=== PATIENT | female | born 1980 | race African-American/Black ===

== ENCOUNTER 2019-12-04 21:33 | Emergency (ER) | payer OTHER ==
--- NOTE | 2019-12-04 21:44 | ED ---
General Adult HPI - General Stated complaint: Mental Health Time Seen by Provider: 12/04/19 21:38 - History of Present Illness Initial comments: Dictation was produced using [employer] dictation software. please excuse any grammatical, word or spelling errors. This patient was cared for during a federal and state declared state of emergency secondary to Covid 19 Chief Complaint: 39-year-old female with auditory hallucinations. History of Present Illness: This 39-year-old female presents today with auditory hallucinations times one day. Patient states she has history of schizophrenia. She every 3 months gets a intramuscular injection to control her schizophrenia symptoms. She states she has not had it in a while. EMS was called by [facility] staff. She is brought in here by EMS. Patient denies any suicidal or homicidal ideations. She denies any visual hallucinations. She states she hears voices that are mumbling however they do not tell her anything specifically. Patient has no medical complaints at this time. The ROS documented in this emergency department record has been reviewed and confirmed by me. Those systems with pertinent positive or negative responses have been documented in the HPI. All other systems are other negative and/or noncontributory. PHYSICAL EXAM: General Impression: Alert and oriented x3, not in acute distress HEENT: Normocephalic atraumatic, extra-ocular movements intact, pupils equal and reactive to light bilaterally, mucous membranes moist. Cardiovascular: Heart regular rate and rhythm Chest: Able to complete full sentences, no retractions, no tachypnea Abdomen: abdomen soft, non-tender, non-distended, no organomegaly Musculoskeletal: Pulses present and equal in all extremities, no peripheral edema Motor: no focal deficits noted Neurological: CN II-XII grossly intact, no focal motor or sensory deficits noted Skin: Intact with no visualized rashes Psych: Normal affect and mood ED course: 39-year-old female presents with auditory hallucinations. She has a history of schizophrenia. Vital signs upon arrival are within acceptable limits. Patient medically cleared for EPS evaluation.Patient evaluated by EPS. Patient given her psychiatric injection. She is clear for discharge. - Related Data Allergies Allergy/AdvReac Type Severity Reaction Status Date / Time No Known Allergies Allergy Verified 12/04/19 22:28 Review of Systems ROS Statement: Those systems with pertinent positive or pertinent negative responses have been documented in the HPI. ROS Other: All systems not noted in ROS Statement are negative. Course Vital Signs 12/04/19 22:33 Temperature 97.8 F Pulse Rate 77 Respiratory 16 Rate Blood Pressure 101/54 O2 Sat by Pulse 99 Oximetry Disposition Clinical Impression: Evaluation by psychiatric service required Disposition: HOME SELF-CARE Condition: Good Instructions (If sedation given, give patient instructions): Schizophrenia (ED) Is patient prescribed a controlled substance at d/c from ED?: No Referrals: Nonstaff,Physician [Primary Care Provider] - 1-2 days Time of Disposition: 22:36
[2019-12-04 22:34] VITALS: BP 101/54; PULSE 77; RESP 16; TEMP 97.8
[2019-12-04] MEDS ORDERED: PALIPERIDONE IM 234 MG/1.5 ML SYG IM ONE (23:00)
== END 2019-12-04 23:07 | disposition home or self-care (01) ==
LOC: EC 21:33
DX: F20.9 Schizophrenia, unspecified (principal)
CPT/HCPCS: 82075; 81025; 96372; 99285; J2426

== ENCOUNTER 2019-12-06 11:36 | Inpatient (IN) | payer MEDICAID, OTHER ==
--- NOTE | 2019-12-06 11:59 | ED ---
General Adult HPI - General Source: patient, RN notes reviewed Mode of arrival: ambulatory Limitations: no limitations <Abdon Wheeler - Last Filed: 12/06/19 11:57> <Jaja Sun - Last Filed: 12/10/19 22:45> - General Chief complaint: Psychiatric Symptoms Stated complaint: Mental Health Time Seen by Provider: 12/06/19 11:44 - History of Present Illness Initial comments: Patient is a pleasant 39-year-old female presenting to the emergency department with concerns regarding her schizophrenia. Patient states she has been taking her medications however questions if they're working well. Patient feels as if some amounts is a control of her body. Patient hears mumbling. Patient also see shadows. Patient amiss to feeling somewhat anxious and paranoid. No suicidal or homicidal thoughts. No alcohol or street drug use. No new physical complaints. (Abdon Wheeler) - Related Data Home Medications Medication Instructions Recorded Confirmed Levothyroxine Sodium [Synthroid] 75 mcg PO DAILY 12/06/19 12/06/19 Omeprazole 20 mg PO DAILY 12/06/19 12/06/19 Wellbutrin 150mg 1 tab PO DAILY 12/06/19 12/06/19 Zoloft (Unknown Dosage) 1 tab PO DAILY 12/06/19 12/06/19 diphenhydrAMINE [Benadryl] 100 mg PO BID 12/06/19 12/06/19 Allergies Allergy/AdvReac Type Severity Reaction Status Date / Time risperidone [From Risperdal] Allergy Unknown Verified 12/06/19 11:43 Review of Systems ROS Other: All systems not noted in ROS Statement are negative. Constitutional: Denies: fever Eyes: Denies: eye pain ENT: Denies: ear pain Respiratory: Denies: cough Cardiovascular: Denies: chest pain Endocrine: Denies: fatigue Gastrointestinal: Denies: abdominal pain Genitourinary: Denies: dysuria Musculoskeletal: Denies: back pain Skin: Denies: rash Neurological: Denies: weakness Psychiatric: Reports: anxiety, auditory hallucinations, visual hallucinations <Abdon Wheeler - Last Filed: 12/06/19 11:57> ROS Other: All systems not noted in ROS Statement are negative. <Jaja Sun - Last Filed: 12/10/19 22:45> ROS Statement: Those systems with pertinent positive or pertinent negative responses have been documented in the HPI. Past Medical History Past Medical History: No Reported History History of Any Multi-Drug Resistant Organisms: None Reported Past Surgical History: No Surgical Hx Reported Past Psychological History: Anxiety, Depression, Schizophrenia Smoking Status: Unknown if ever smoked Past Alcohol Use History: None Reported Past Drug Use History: Cocaine <Abdon Wheeler - Last Filed: 12/06/19 11:57> General Exam Limitations: no limitations General appearance: alert, in no apparent distress Head exam: Present: normocephalic Eye exam: Present: normal appearance Neck exam: Present: normal inspection Respiratory exam: Present: normal lung sounds bilaterally Cardiovascular Exam: Present: regular rate, normal rhythm GI/Abdominal exam: Present: soft. Absent: tenderness Extremities exam: Present: normal inspection Neurological exam: Present: alert Psychiatric exam: Present: anxious Skin exam: Present: normal color <Abdon Wheeler - Last Filed: 12/06/19 11:57> Course Vital Signs 12/06/19 12/06/19 11:38 12:45 Temperature 98.3 F 97.8 F Pulse Rate 76 82 Respiratory 18 18 Rate Blood Pressure 94/63 126/64 O2 Sat by Pulse 100 97 Oximetry Medical Decision Making - Lab Data Result diagrams: 12/06/19 17:20 12/06/19 18:18 <Jaja Sun - Last Filed: 12/10/19 22:45> - Lab Data Lab Results 12/06/19 Range/Units 12:05 Urine Opiates Screen Not Detected (NotDetected) Ur Oxycodone Screen Not Detected (NotDetected) Urine Methadone Screen Not Detected (NotDetected) Ur Propoxyphene Screen Not Detected (NotDetected) Ur Barbiturates Screen Not Detected (NotDetected) U Tricyclic Antidepress Not Detected (NotDetected) Ur Phencyclidine Scrn Not Detected (NotDetected) Ur Amphetamines Screen Not Detected (NotDetected) U Methamphetamines Scrn Not Detected (NotDetected) U Benzodiazepines Scrn Not Detected (NotDetected) Urine Cocaine Screen Not Detected (NotDetected) U Marijuana (THC) Screen Not Detected (NotDetected) Disposition <Abdon Wheeler - Last Filed: 12/06/19 11:57> Is patient prescribed a controlled substance at d/c from ED?: No Decision to Admit Reason: Admit from EC Decision Date: 12/06/19 Decision Time: 16:26 <Jaja Sun - Last Filed: 12/10/19 22:45> Clinical Impression: Acute psychosis Disposition: ADMITTED IP TO THIS HOSP Condition: Stable
[2019-12-06 13:08] LABS: Amphetamine Screen,Urine Not Detected (NotDetected); Barbiturate Screen,Urine Not Detected (NotDetected); Benzodiazepines Screen,Urine Not Detected (NotDetected); Cocaine Screen,Urine Not Detected (NotDetected); Methadone Screen, Urine Not Detected (NotDetected); Opiate Screen,Urine Not Detected (NotDetected); Oxycodone Screen, Urine Not Detected (NotDetected); Phencyclidine Screen,Urine Not Detected (NotDetected); Tricyclic Antidepressant,Urine Not Detected (NotDetected); Urn Cannabinoid Scrn Not Detected (NotDetected)
[2019-12-06] MEDS ORDERED: ZIPRASIDONE 20 MG VIAL IM PRN (16:24)
[2019-12-06] MEDS ORDERED: MAGNESIUM HYDROXIDE 2,400 MG/10 ML CUP PO PRN (16:24)
[2019-12-06] MEDS ORDERED: ACETAMINOPHEN TAB 325 MG TAB PO PRN (16:24)
[2019-12-06] MEDS ORDERED: LORazepam 2 MG/ML INJ IM PRN (16:28)
[2019-12-06] MEDS ORDERED: KETOROLAC 15 MG/ML 1 ML VIAL IM STA (17:17)
[2019-12-06] MEDS ORDERED: ALBUTEROL INHALER 60 PUFF/8 GM INHALER (MHU) INHALATION PRN (17:43)
--- NOTE | 2019-12-06 17:50 | P.HPMEDMHU ---
History of Present Illness H&P Date: 12/06/19 Chief Complaint: schizophrenia Patient is a 39 yo AAF with a hx of asthma, hypothyroidism, and prior pancreatitis who has been admitted to the mental health unit for schizophrenia. Patient seen and examined. She reports that she was at [facility] in [place] 2 months ago for pancreatitis and has had abdominal pain since that time. + vomiting today this morning. + abdominal pain that is epigastric this has been happening X 2 months. States pain never really complete resolved after her admission 2 months ago States that Pain medications were helping in the hospital but has not been taking anything at home. + gaining weight, eating and drinking well, but states that stomach has been hurting more after eating. last Bowel movement yesterday and was regular. No problems urinating. Reports that her abdominal pain is bad, but not bad enough that she needs a special diet. She reports that she takes Benadryl 100mg twice daily for anxiety/allergies and multiple other reasons. Was at [facility] and completed the program started at [facility] on Nov 30 Review of Systems Pertinent positives and negatives as discussed in HPI, a complete review of systems was performed and all other systems are negative. Constitutional: Denies chills, Denies fever Eyes: denies blurred vision, denies pain Ears, nose, mouth and throat: Denies headache, Denies sore throat Cardiovascular: Denies chest pain, Denies shortness of breath Respiratory: Denies cough Gastrointestinal: Denies abdominal pain, Denies diarrhea, Denies nausea, Denies vomiting Genitourinary: Denies dysuria, Denies hematuria Musculoskeletal: Denies myalgias Integumentary: Denies pruritus, Denies rash Neurological: Denies numbness, Denies weakness Psychiatric: Denies anxiety, Denies depression Endocrine: Denies fatigue, Denies weight change Past Medical History Additional Past Medical History / Comment(s): pancreatitis, acid reflux, hypothyroidism, asthma History of Any Multi-Drug Resistant Organisms: None Reported Additional Past Surgical History / Comment(s): , gallbladder Past Psychological History: Anxiety, Depression, Schizophrenia Smoking Status: Current every day smoker Past Alcohol Use History: None Reported Past Drug Use History: Cocaine Additional History: 1/3 PPD - Past Family History Father Family Medical History: No Reported History Mother Family Medical History: No Reported History Medications and Allergies Home Medications Medication Instructions Recorded Confirmed Type Levothyroxine Sodium [Synthroid] 75 mcg PO DAILY 12/06/19 12/06/19 History Omeprazole 20 mg PO DAILY 12/06/19 12/06/19 History Wellbutrin 150mg 1 tab PO DAILY 12/06/19 12/06/19 History Zoloft (Unknown Dosage) 1 tab PO DAILY 12/06/19 12/06/19 History diphenhydrAMINE [Benadryl] 100 mg PO BID 12/06/19 12/06/19 History Allergies Allergy/AdvReac Type Severity Reaction Status Date / Time risperidone [From Risperdal] Allergy Unknown Verified 12/06/19 11:43 Physical Exam Osteopathic Statement: *. No significant issues noted on an osteopathic structural exam other than those noted in the History and Physical/Consult. Vitals: Vital Signs Temp Pulse Resp BP Pulse Ox 12/06/19 12:45 97.8 F 82 18 126/64 97 12/06/19 11:38 98.3 F 76 18 94/63 100 Intake and Output 12/06/19 12/06/19 12/06/19 06:59 14:59 22:59 Other: Weight 55.52 kg General: non toxic, no distress, appears older than stated age Derm: multiple scars bilateral arms, warm, dry Head: atraumatic, normocephalic, symmetric Eyes: EOMI, no lid lag, anicteric sclera, pupils equal round reactive to light ENT: Nose and ears atraumatic, no thrush, no pharyngeal erythema Neck: No thyromegaly, no cervical lymphadenopathy, trachea midline, supple Mouth: no lip lesion, mucus membranes moist Cardiovascular: S1S2 reg, no murmur, positive posterior tibial pulse bilateral, no edema, capillary refill less than 2 seconds Lungs: Wheeze bilateral, no accessory muscle use Abdominal: soft, + tender to palpation diffusely, no guarding, no appreciable o rganomegaly, normal bowel sounds Ext: no gross muscle atrophy, muscle strength muscle strength 5 out of 5 in all 4 extremities, no contractures Neuro: CN II-XI grossly intact, light touch intact all 4 extremities, finger to nose within normal limits, Psych: Alert, oriented, appears to be med seeking Cranial Nerve Examination - Cranial Nerves Cranial Nerve I- Olfactory: Intact Cranial Nerve II- Optic: Intact Cranial Nerve III- Oculomotor: Intact Cranial Nerve IV- Trochlear: Intact Cranial Nerve V- Trigeminal: Intact Cranial Nerve - Abducens: Intact Cranial Nerve VII- Facial: Intact Cranial Nerve VIII- Auditory: Intact Cranial Nerve IX- Glossopharyngeal: Intact Cranial Nerve X- Vagus: Intact Cranial Nerve XI- Accessory: Intact Cranial Nerve XII- Hypoglossal: Intact Thrombosis Risk Factor Assmnt - DVT/VTE Prophylaxis DVT/VTE Prophylaxis: Low risk, early ambulation encouraged Assessment and Plan Assessment: Abdominal pain - CMP, Lipase, CBC - toradol X 1 then - then motrin, tylenol GERD - PPI Hypothyroidism - Synthroid - check TSH Asthma without exacerbation - prn albuterol Schizophrenia - your psych management Thank you for allowing us to participate in the care of this pleasant patient. Do not hesitate to contact us with questions. Someone can be reached from the [facility] hospitalist group all hours of the day at [phone] or via [employer].
[2019-12-06] MEDS: PANTOPRAZOLE 40 MG TABLET PO SCH (18:00)
[2019-12-06] MEDS: diphenhydrAMINE 50 MG CAP PO PRN (18:00)
[2019-12-06] MEDS: LORazepam 1 MG TAB PO PRN (18:21)
[2019-12-06 19:16] LABS: HCT 39.1 % (34.0-46.0); MCH 31.7 pg (25.0-35.0); MCHC 33.3 g/dL (31.0-37.0); Mean Platelet Volume 9.9; Platelet Count 134 k/uL (150-450); RBC 4.12 m/uL (3.80-5.40); RDW 12.8 % (11.5-15.5); WBC 3.4 k/uL (3.8-10.6)
[2019-12-06 19:16] LABS: ALT 15 U/L (4-34); AST 36 U/L (14-36); African American GFR (CKD) >90 (>60 ml/min/1.73 sqM); Albumin 4.1 g/dL (3.5-5.0); Alkaline Phosphatase 102 U/L (38-126); Anion Gap 8 mmol/L; Blood Urea Nitrogen 18 mg/dL (7-17); Carbon Dioxide 25 mmol/L (22-30); Chloride 105 mmol/L (98-107); Glucose 109 mg/dL (74-99); Non-African American GFR(CKD) >90 (>60 ml/min/1.73 sqM); Sodium 138 mmol/L (137-145); Total Bilirubin 0.5 mg/dL (0.2-1.3); Total Protein 7.1 g/dL (6.3-8.2)
[2019-12-06 19:17] LABS: Potassium 4.3 mmol/L (3.5-5.1)
[2019-12-06 19:31] LABS: Cholesterol 167 mg/dL (<200); HDL Cholesterol 61 mg/dL (40-60); LDL Cholesterol,Calculated 78 mg/dL (0-99); Triglycerides 140 mg/dL (<150)
[2019-12-06] MEDS: IBUPROFEN 600 MG TAB PO PRN (19:47)
[2019-12-06] MEDS: MAG HYDROX/AL HYDROX/SIMETH 30 ML CUP PO PRN (22:11)
[2019-12-07] MEDS: MAG HYDROX/AL HYDROX/SIMETH 30 ML CUP PO PRN ×3 (03:59→20:12)
[2019-12-07] MEDS: ONDANSETRON 4 MG TAB PO PRN (06:12)
[2019-12-07] MEDS ORDERED: LEVOTHYROXINE 75 MCG TAB PO SCH (06:30)
[2019-12-07] MEDS: LORazepam 1 MG TAB PO PRN (08:20)
[2019-12-07] MEDS: PANTOPRAZOLE 40 MG TABLET PO SCH (08:20)
[2019-12-07] MEDS: diphenhydrAMINE 50 MG CAP PO PRN ×2 (08:20→20:12)
[2019-12-07] MEDS: NICOTINE 14MG/24HR PATCH TRANSDERM SCH (08:20)
[2019-12-07] MEDS ORDERED: [UNRECOGNIZED DRUG - OTHER] PO SCH (09:00)
[2019-12-07] MEDS ORDERED: NICOTINE 21MG/24HR PATCH TRANSDERM SCH (09:00)
--- NOTE | 2019-12-07 11:15 | P.PN ---
Subjective Progress Note Date: 12/07/19 Principal diagnosis: abdominal pain Patient is a 39 yo AAF with hx of prior pancreatitis with complaints of abdominal pain. Vomited 3 times last night. Patient seen and examined. She states that she had increased in abdominal pain after eating breakfast. Still having some nausea, but no vomiting. States that she is hungry and wants to eat. We discussed that her lipase was normal and but that her pancreas could be slightly flared. She is in agreement with clear liquids of lunch and advance as tolerated to full liquid. General: non toxic , no distress, appears at stated age Derm: warm, dry Head: atraumatic, normocephalic, symmetric Eyes: EOMI, no lid lag, anicteric sclera Mouth: no lip lesion, mucus membranes moist Cardiovascular: S1S2 reg, no murmur, positive posterior tibial pulse bilateral, Lungs: Decreased bs bilateral, no rhonchi, no rales , no accessory muscle use Abdominal: soft, +tender to palpation epigastric, no guarding, no appreciable organomegaly Ext: no gross muscle atrophy, no edema, no contractures Neuro: CN II-XI grossly intact, no focal neuro deficits Psych: Alert, oriented, flat affect Abdominal pain - CMP, Lipase normal - CBC normal - clear liquid diet and advance as tolerated to full liquids this evening - may be that her lipase is not elevating due to prior pancreatitis episodes, if still in pain or vomiting then next step will be CT abdomen and pelvis in AM Objective - Vital Signs Vital signs: Vital Signs Temp 98.2 F 12/07/19 01:27 Pulse 89 12/07/19 08:24 Resp 16 12/07/19 08:24 BP 126/58 12/07/19 08:24 Pulse Ox 97 12/06/19 12:45 Intake & Output 12/06/19 12/07/19 12/07/19 18:59 06:59 18:59 Weight 54.431 kg - Labs CBC & Chem 7: 12/06/19 17:20 12/06/19 18:18 Labs: Abnormal Lab Results - Last 24 Hours (Table) 12/06/19 12/06/19 12/07/19 Range/Units 17:20 18:18 07:06 WBC 3.4 L (3.8-10.6) k/uL Plt Count 134 L (150-450) k/uL BUN 18 H (7-17) mg/dL Glucose 109 H (74-99) mg/dL HDL Cholesterol 61 H (40-60) mg/dL TSH 0.297 L (0.465-4.680) mIU/L Free T4 0.73 L (0.78-2.19) ng/dL
--- NOTE | 2019-12-07 11:37 | HP ---
HISTORY AND PHYSICAL DATE OF ADMISSION: 12/06/2019 DATE OF EVALUATION: 12/07/2019 IDENTIFYING DATA: The patient is a 39-year-old single female, receiving social security income. She is her own guardian. She presented to the emergency department with paranoia, hallucination, and depression. CHIEF COMPLAINT: "I am hearing voices, but it is just mumbling. Also I do see a lot of shadows around me. There is something touching my body." HISTORY OF PRESENT ILLNESS: The patient stated that she has history of schizophrenia since age 19 with multiple psychiatric hospitalizations at [facility] and she was on Invega injection every 3 months. However, for the last couple of weeks, she has been hearing voices and she stated that she did miss her appointment for the injection and she did show up in our emergency room on December 03 and she did receive an injection. However, I did look at the ER note from December 03 and it was not clear how much she did receive. The patient stated that she is currently at [facility] since November 30 after 2 weeks inpatient at [place] as she was addicted to crack cocaine since her early 20s. She was starting to see dark shadows and hearing voices, getting very paranoid and suspicious. 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 She reported that she has been having abdominal pain and she has been vomiting at least 2 or 3 times over the last couple of days. She denied any command auditory hallucination and she denied any current suicidal or homicidal ideation, but she did rate her depression and anxiety both 10 out of 10, 10 being the worst. PAST PSYCHIATRIC HISTORY: Patient stated that she has at least between 10-15 inpatient psych hospitalizations. The first psych hospitalization was at age 19 and the last one was a couple of months ago. Most of these hospitalizations are in [place]. She stated that she was diagnosed with schizophrenia and she did try different psychotropic medications, but she could not recall the name of all medications. The patient has been at [facility] or [facility] for outpatient. Her current psychotropic medication was Invega injection every 3 months. However, she stated that she did not follow through and currently she is on Zoloft 50 mg and Wellbutrin 150, but she does not feel that these medications are helping her. The patient denied any history of suicide attempt in the past. The patient has history of self-mutilation behavior in her late 20s. PAST MEDICAL HISTORY: She has history of asthma, hypothyroidism, history of pancreatitis. Her last admission for pancreatitis was 2 months ago at [facility] in [place] and since then, she stated that she has been having epigastric abdominal pain with recurrent vomiting. Also, there is history of acid reflux. PAST SURGICAL HISTORY: Gallbladder and . ALLERGIES: Risperdal. VITAL SIGNS: Today, temperature is 98.3, pulse 76, respirations 18, blood pressure 126/64. CHEMICAL SUBSTANCE ABUSE HISTORY: Cocaine. She started using cocaine in her early teen, however, it was not so often and it has been getting worse since she turned 31. She stated that she was in rehab for cocaine at least twice prior to the last admission to [place]. She just finished [facility] 2 weeks inpatient and she was transferred to [facility] on November 30. There is history of alcohol use. She stated that she used to drink a lot, but she denied any alcohol since she has been in [place]. FAMILY PSYCHIATRIC AND SUBSTANCE ABUSE HISTORY: The patient denied any history of substance abuse or mental illness in the family. However, she stated that her biological mother used to drink a lot and did drugs and that is why patient was adopted at age 5. SOCIAL HISTORY: The patient was born and raised in [place]. At age 5, she was adopted with her 2 older sisters, as her mother was addicted to alcohol and illicit drug The patient was never , but she has 3 children but they were placed in foster care at due to her cocaine use. Patient stated that she did not know her biological father, but she met her biological mother when she was grown up and her biological mother 3 years ago from heart attack. The patient is receiving social security income and she was living on her own in [place]. 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 However, she stated that her reading and math level are 4th grade education. Her main support is her oldest sister. The patient denied any legal problems. MENTAL STATUS EXAMINATION: The patient is an female who appears her stated age. Marginal hygiene and grooming. She was able to sit without any agitation. She was very anxious. Her speech is non-spontaneous but coherent. She stated that she has been having auditory and visual hallucinations, also tactile hallucinations. She stated that she does feel something under her skin. She did report ideas of reference. She reports that her mood is depressed and anxious. Her affect is constricted. She denied having any homicidal ideation, intent, or plan. She denied any suicidal ideation, intent, or plan. Her memory and concentration are grossly intact. Her insight and judgment are limited. INTELLECTUAL: Below-average. STRENGTHS AND WEAKNESSES: The patient has income and she is resilient. Weakness is her cocaine use and her limited intellectual function. IMPRESSION: 1. Schizoaffective disorder, depressed. 2. Cocaine use disorder. 3. Nicotine dependence. PLAN: The patient is admitted under voluntary status to the mental health unit for stabilization of the symptoms and safety. I will start the patient on Lexapro 10 mg for mood and anxiety with a plan to titrated up as needed. I will discontinue the Ativan as it seems to me that it will be cross addiction and the patient had long history of alcohol use. She will be given hydroxyzine or Vistaril p.r.n. for anxiety. Will contact [facility] to verify the Invega injection and how much she was taking and when is the last time she received an injection. However, I will start her on Invega oral 3 mg at bedtime and I will titrate it to eliminate her paranoia and hallucinations. Internal Medicine consult to perform medical evaluation and physical. The patient will be placed on nicotine patches. POST DISCHARGE PLAN: Patient will return back to [facility] for rehab. scale assembly set up worker onboard for discharge planning. Encourage patient to participate in group and activities. JIMMY / RADHAN: [id number] / KASSIDY
[2019-12-07] MEDS: hydrOXYzine pamoate 25 MG CAP PO PRN ×2 (13:57→20:12)
[2019-12-07] MEDS ORDERED: PALIPERIDONE 3 MG TAB.ER.24 PO SCH (21:00)
[2019-12-08] MEDS: LEVOTHYROXINE 50 MCG TAB PO SCH (07:09)
[2019-12-08] MEDS: hydrOXYzine pamoate 25 MG CAP PO PRN ×2 (08:28→16:06)
[2019-12-08] MEDS: diphenhydrAMINE 50 MG CAP PO PRN ×3 (08:28→20:28)
[2019-12-08] MEDS: NICOTINE 14MG/24HR PATCH TRANSDERM SCH (08:28)
[2019-12-08] MEDS: ESCITALOPRAM 10 MG TAB PO SCH (08:28)
[2019-12-08] MEDS: PANTOPRAZOLE 40 MG TABLET PO SCH (08:28)
--- NOTE | 2019-12-08 12:21 | P.PN ---
Progress Note - Text Progress Note Date: 12/08/19 I reviewed medical records ,did interview patient and case was discussed in treatment team Physical c/o:abdominal pain,was seen by medical doctor :according to note(( abdominal pain Patient is a 39 yo AAF with hx of prior pancreatitis with complaints of abdominal pain. Vomited 3 times last night. Patient seen and examined. She states that she had increased in abdominal pain after eating breakfast. Still having some nausea, but no vomiting. States that she is hungry and wants to eat. We discussed that her lipase was normal and but that her pancreas could be slightly flared. She is in agreement with clear liquids of lunch and advance as tolerated to full liquid. General: non toxic , no distress, appears at stated age Derm: warm, dry Head: atraumatic, normocephalic, symmetric Eyes: EOMI, no lid lag, anicteric sclera Mouth: no lip lesion, mucus membranes moist Cardiovascular: S1S2 reg, no murmur, positive posterior tibial pulse bilateral, Lungs: Decreased bs bilateral, no rhonchi, no rales , no accessory muscle use Abdominal: soft, +tender to palpation epigastric, no guarding, no appreciable organomegaly Ext: no gross muscle atrophy, no edema, no contractures Neuro: CN II-XI grossly intact, no focal neuro deficits Psych: Alert, oriented, flat affect Abdominal pain - CMP, Lipase normal - CBC normal - clear liquid diet and advance as tolerated to full liquids this evening - may be that her lipase is not elevating due to prior pancreatitis episodes, if still in pain or vomiting then next step will be CT abdomen and pelvis in AM)) Interval history: Patient was seating on her bed in the dark ,no interaction with other patients ,still endorsing auditory and tactile hallucination ,denies any command voice ,reports not able to sleep at night and asking me "Can you put me on regular diet I am hungry" Mental status exam: Patient was wearing own cloth ,fair grooming and hygiene, reports auditory hallucination ,suspicious ,paranoia,denies any suicidal or homicidal ideation ,very concrete in her thinking insight and judgment are limited ASSESSMENT: Schizoaffective ,depressed Cocaine use disorder PLAN: Patient continues to meet criteria for inpatient psychiatric admission for symptom stabilization and safety. Continue Lexapro 10 mg increase Invega 6 mg ,SW to have information from [place] regarding dose of Invega injection,encourage group participation
[2019-12-08] MEDS: MAG HYDROX/AL HYDROX/SIMETH 30 ML CUP PO PRN (16:26)
[2019-12-08] MEDS ORDERED: PALIPERIDONE 6 MG TAB.ER.24 PO SCH (21:00)
[2019-12-09] MEDS: LEVOTHYROXINE 50 MCG TAB PO SCH (06:59)
[2019-12-09] MEDS: NICOTINE 14MG/24HR PATCH TRANSDERM SCH (08:54)
[2019-12-09] MEDS: ESCITALOPRAM 10 MG TAB PO SCH (08:54)
[2019-12-09] MEDS: PANTOPRAZOLE 40 MG TABLET PO SCH (08:54)
[2019-12-09] MEDS: hydrOXYzine pamoate 25 MG CAP PO PRN ×2 (08:55→16:59)
[2019-12-09] MEDS: diphenhydrAMINE 50 MG CAP PO PRN (08:55)
--- NOTE | 2019-12-09 09:52 | P.PN ---
Progress Note - Text Progress Note Date: 12/09/19 I reviewed medical records ,did interview patient and case was discussed in treatment team Patient was started back on regular diet ,no vomiting but still c/o of nausea and abdominal pain TODAY VITALS:temp:98.7,P:69,R:18,BP:111/53 Slept"6-7 hours Interval history: Patient was walking in [place] and agreed to follow me to office ,she stated "Can you increase my medications,I am still paranoia,depressed and anxious",patient is still endorsing abdominal pain but she said "Not so bad as before",does not interact with other patients ,no group participation ,isolating her self in her room ,up for meds and meal Mental status exam: Patient was wearing own cloth ,fair grooming and hygiene, vague,guarded ,speech is limited in productivity but coherent ,stated mood "Nervous"constricted affect ,reports auditory hallucination ,suspicious ,paranoia,denies any suicidal or homicidal ideation ,very concrete in her thinking insight and judgment are limited ASSESSMENT: Schizoaffective ,depressed Cocaine use disorder PLAN: Patient continues to meet criteria for inpatient psychiatric admission for symptom stabilization and safety. Increase Lexapro 20 mg for mood and anxiety ,increase Invega 9 mg for hallucination and paranoia ,Vistaril 25 mg BID scheduled for anxiety ,add DEMETRIO Holliday to have information from [place] regarding dose of Invega injection,encourage group participation
[2019-12-09] MEDS ORDERED: BENZTROPINE MESYLATE 1 MG TAB PO ONE (11:20)
[2019-12-09] MEDS ORDERED: hydrOXYzine pamoate 25 MG CAP PO ONE (11:21)
[2019-12-09] MEDS: MAG HYDROX/AL HYDROX/SIMETH 30 ML CUP PO PRN (16:59)
[2019-12-09] MEDS: BENZTROPINE MESYLATE 1 MG TAB PO SCH (20:04)
[2019-12-09] MEDS: hydrOXYzine pamoate 25 MG CAP PO SCH (20:08)
[2019-12-09] MEDS ORDERED: PALIPERIDONE 3 MG TAB.ER.24 PO SCH (21:00)
[2019-12-10] MEDS: LEVOTHYROXINE 50 MCG TAB PO SCH (06:09)
[2019-12-10] MEDS: PANTOPRAZOLE 40 MG TABLET PO SCH (08:26)
[2019-12-10] MEDS: BENZTROPINE MESYLATE 1 MG TAB PO SCH ×2 (08:26→21:09)
[2019-12-10] MEDS: NICOTINE 14MG/24HR PATCH TRANSDERM SCH (08:26)
[2019-12-10] MEDS: ESCITALOPRAM 20 MG TAB PO SCH (08:26)
[2019-12-10] MEDS: hydrOXYzine pamoate 25 MG CAP PO SCH ×2 (08:26→21:10)
--- NOTE | 2019-12-10 08:44 | P.PN ---
Progress Note - Text Progress Note Date: 12/10/19 I reviewed medical records ,did interview patient and case was discussed in treatment team Patient received 156 mg Invega in ER on 12/03 TODAY VITALS:temp:98.7,P:69,R:18,BP:97/54 Has trouble sleeping "Restless all night" Interval history: Patient was walking in [place] and agreed to follow me to office ,she stated that auditory hallucination are less but still feeling paranoia ,has trouble sleeping ,endorses restless feeling and hands tremors ,was able to eat breakfast without problem ,no nausea or vomiting,no interaction with other ,isolating herself and minimal participation in groups Mental status exam: Patient was wearing hospital gown,fair grooming and hygiene, vague,guarded ,speech is limited in productivity but coherent ,stated mood "Nervous"constricted affect ,reports auditory hallucination ,suspicious ,paranoia,denies any suicidal or homicidal ideation ,very concrete in her thinking insight and judgment are limited ASSESSMENT: Schizoaffective ,depressed ,Intellectual disability Cocaine use disorder PLAN: Patient continues to meet criteria for inpatient psychiatric admission for symptom stabilization and safety. Add Remeron for sleep and mood ,continue Lexapro 20 mg for mood and anxiety ,decrease Invega to minimize EPS ,cogentin 1 mg BID ,Vistaril 25 mg BID scheduled for anxiety , DEMETRIO Holliday on board for post discharge plan ,encourage group participation
[2019-12-10] MEDS ORDERED: PALIPERIDONE 6 MG TAB.ER.24 PO SCH ×2 (09:00→21:00)
[2019-12-10 11:51] LABS: T4, Free (Free Thyroxine) 0.86 ng/dL (0.78-2.19)
[2019-12-10] MEDS: IBUPROFEN 600 MG TAB PO PRN (12:01)
[2019-12-10] MEDS: MAG HYDROX/AL HYDROX/SIMETH 30 ML CUP PO PRN ×2 (12:01→19:49)
[2019-12-10] MEDS: hydrOXYzine pamoate 25 MG CAP PO PRN (16:31)
[2019-12-10] MEDS: MIRTAZAPINE 15 MG TAB PO SCH (21:09)
[2019-12-11] MEDS: LEVOTHYROXINE 50 MCG TAB PO SCH (06:16)
[2019-12-11] MEDS: MAG HYDROX/AL HYDROX/SIMETH 30 ML CUP PO PRN ×2 (07:11→12:28)
[2019-12-11] MEDS: NICOTINE 14MG/24HR PATCH TRANSDERM SCH (08:25)
[2019-12-11] MEDS: BENZTROPINE MESYLATE 1 MG TAB PO SCH ×2 (08:26→20:10)
[2019-12-11] MEDS: hydrOXYzine pamoate 25 MG CAP PO SCH (08:26)
[2019-12-11] MEDS: ESCITALOPRAM 20 MG TAB PO SCH (08:26)
[2019-12-11] MEDS: PANTOPRAZOLE 40 MG TABLET PO SCH (08:26)
[2019-12-11] MEDS: ONDANSETRON 4 MG TAB PO PRN (08:27)
--- NOTE | 2019-12-11 09:07 | P.PN ---
Progress Note - Text Progress Note Date: 12/11/19 I reviewed medical records ,did interview patient and case was discussed in treatment team Patient received 156 mg Invega in ER on 12/03 TODAY VITALS:temp:98.7,P;85,R:16,BP:129/55 Had trouble falling asleep "Restless all night",slept 3 hours ,participating in some groups PHYSICAL : had nausea and abdominal pain after breakfast ,PRN Zofran "helped " Interval history: Patient was walking in [place] and agreed to follow me to office ,she stated that auditory hallucination are less but still seeing shadows ,denies any command hallucination of any kind ,has trouble sleeping ,endorses restless feeling and was rocking back and forth , stated "":I get scared around people ",stated that she is always anxious and asking to be back on her Benadryl 50 mg BID as schedule dose ,no interaction with other ,isolating herself and minimal participation in groups Mental status exam: Patient was wearing hospital gown,fair grooming and hygiene, vague,guarded ,speech is limited in productivity but coherent ,stated mood "Nervous"constricted affect ,reports auditory hallucination and seeing shadow,,denies any suicidal or homicidal ideation ,very concrete in her thinking insight and judgment are limited ASSESSMENT: Schizoaffective ,depressed ,Intellectual disability Cocaine use disorder PLAN: Patient continues to meet criteria for inpatient psychiatric admission for symptom stabilization and safety ,Benadryl 50 mg BID,continue Lexapro 20 mg for mood and anxiety ,continue Remeron for sleep ,Cogentin and PRN Vistaril ,avoid any benzodiazepine , Zofran prn ,SW on board for post discharge plan ,encourage group participation
[2019-12-11] MEDS: diphenhydrAMINE 50 MG CAP PO SCH ×2 (09:34→20:10)
[2019-12-11] MEDS: hydrOXYzine pamoate 25 MG CAP PO PRN (18:30)
[2019-12-11] MEDS: MIRTAZAPINE 15 MG TAB PO SCH (20:10)
[2019-12-11] MEDS: IBUPROFEN 600 MG TAB PO PRN (20:12)
[2019-12-12] MEDS: LEVOTHYROXINE 50 MCG TAB PO SCH (06:48)
[2019-12-12] MEDS: NICOTINE 14MG/24HR PATCH TRANSDERM SCH (08:42)
[2019-12-12] MEDS: BENZTROPINE MESYLATE 1 MG TAB PO SCH ×2 (08:43→20:08)
[2019-12-12] MEDS: diphenhydrAMINE 50 MG CAP PO SCH ×2 (08:43→20:08)
[2019-12-12] MEDS: ONDANSETRON 4 MG TAB PO PRN (08:43)
[2019-12-12] MEDS: IBUPROFEN 600 MG TAB PO PRN ×2 (08:43→16:36)
[2019-12-12] MEDS: PANTOPRAZOLE 40 MG TABLET PO SCH (08:43)
[2019-12-12] MEDS: ESCITALOPRAM 20 MG TAB PO SCH (08:43)
[2019-12-12] MEDS: MAG HYDROX/AL HYDROX/SIMETH 30 ML CUP PO PRN ×2 (10:47→14:50)
--- NOTE | 2019-12-12 11:58 | PN ---
PROGRESS NOTE DATE OF SERVICE: 12/12/2019. CHIEF COMPLAINT: "I am hearing voices, but it is just mumbling. Also, I do see a lot of shadows around me. There is something touching my body." INTERVAL HISTORY: Patient has been doing fair. She had a quiet day yesterday. She comes out in the day area. She tends to have a reserved demeanor. She has not been attending groups. She continues with significant signs of EPS, most likely related to her Invega. It is noted that her oral Invega was discontinued yesterday. The patient herself says that she did take the long-acting Invega about 2 months ago and may have continuing affects from that in regard to side effects. She slept fairly well last night. Today she has been up. She has a quiet reserved manner. She continues with a lot of body movements which she says she has had since a child. She noted that Invega or some similar medicine is very important for her in terms of managing her psychotic symptoms. She has been cooperative with care. She does show apparent significant EPS likely relating to her antipsychotics. MENTAL STATUS: Patient sat with an almost continuous rocking motion. She gave fairly good eye contact. She answered questions with brief responses. She talks in a soft, almost mumbled voice. Her thoughts were clear. Her affect was flat. Her mood reserved. It was difficult to say how distressed she might be. She continues to report seeing shadows, though auditory hallucinations seem to be lessening. She voices no thoughts of harm. She is oriented and alert. ASSESSMENT: I will continue the current diagnosis and treatment plan. We will continue to make efforts to engage the patient in individual and group therapeutic activities. I will continue psychotropic medications the same. At present, she is off Invega. She does live in a chcf and is anticipating being discharged soon. She states that she is compliant with medications, so one consideration would be to switch the patient to Zyprexa which has a very low incidence of EPS compared to any other antipsychotics. The patient herself is not aware that she has been on Zyprexa in the past. I will defer any change in medications to Dr. Sinha. We will focus on stabilization and discharge planning. MMODL / RADHAN: [id number] /
[2019-12-12] MEDS: hydrOXYzine pamoate 25 MG CAP PO PRN ×2 (12:42→20:07)
[2019-12-12 14:34] LABS: Basophils % (A) 1 %; Eosinophils # (A) 0.1 k/uL (0-0.7); Eosinophils % (A) 4 %; HCT 43.2 % (34.0-46.0); HGB 14.5 gm/dL (11.4-16.0); Lymphocytes % (A) 31 %; MCH 31.4 pg (25.0-35.0); MCHC 33.5 g/dL (31.0-37.0); MCV 93.8 fL (80.0-100.0); Mean Platelet Volume 9.6; Monocytes # (A) 0.3 k/uL (0-1.0); Monocytes % (A) 9 %; Neutrophils # (A) 1.8 k/uL (1.3-7.7); Neutrophils % (A) 54 %; Platelet Count 136 k/uL (150-450); RBC 4.61 m/uL (3.80-5.40); RDW 12.3 % (11.5-15.5); WBC 3.3 k/uL (3.8-10.6)
[2019-12-12 18:42] LABS: Albumin 4.5 g/dL (3.5-5.0); Calcium 9.1 mg/dL (8.4-10.2); Total Bilirubin 0.6 mg/dL (0.2-1.3)
[2019-12-12] MEDS: MIRTAZAPINE 15 MG TAB PO SCH (20:08)
[2019-12-13] MEDS: LEVOTHYROXINE 50 MCG TAB PO SCH (06:24)
[2019-12-13 07:03] VITALS: PULSE 75
[2019-12-13] MEDS: ONDANSETRON 4 MG TAB PO PRN ×3 (07:10→17:17)
[2019-12-13] MEDS: IBUPROFEN 600 MG TAB PO PRN ×2 (07:10→17:19)
[2019-12-13] MEDS: PANTOPRAZOLE 40 MG TABLET PO SCH (09:27)
[2019-12-13] MEDS: BENZTROPINE MESYLATE 1 MG TAB PO SCH ×2 (09:29→21:43)
[2019-12-13] MEDS: ESCITALOPRAM 20 MG TAB PO SCH (09:29)
[2019-12-13] MEDS: diphenhydrAMINE 50 MG CAP PO SCH ×2 (09:29→21:43)
[2019-12-13] MEDS: NICOTINE 14MG/24HR PATCH TRANSDERM SCH ×2 (09:29→09:32)
[2019-12-13] MEDS: OLANZapine 5 MG TAB PO SCH ×2 (12:58→21:44)
[2019-12-13 13:44] VITALS: BMI 20.5
[2019-12-13] MEDS: hydrOXYzine pamoate 25 MG CAP PO PRN (17:18)
[2019-12-13] MEDS: MIRTAZAPINE 15 MG TAB PO SCH (21:43)
[2019-12-14] MEDS: LEVOTHYROXINE 50 MCG TAB PO SCH (07:03)
[2019-12-14] MEDS: NICOTINE 14MG/24HR PATCH TRANSDERM SCH (08:43)
[2019-12-14] MEDS: PANTOPRAZOLE 40 MG TABLET PO SCH (08:46)
[2019-12-14] MEDS: OLANZapine 5 MG TAB PO SCH (08:46)
[2019-12-14] MEDS: hydrOXYzine pamoate 25 MG CAP PO PRN (08:46)
[2019-12-14] MEDS: diphenhydrAMINE 50 MG CAP PO SCH (08:46)
[2019-12-14] MEDS: MAG HYDROX/AL HYDROX/SIMETH 30 ML CUP PO PRN ×3 (08:46→20:27)
[2019-12-14] MEDS: IBUPROFEN 600 MG TAB PO PRN ×2 (08:46→16:25)
[2019-12-14] MEDS: ESCITALOPRAM 20 MG TAB PO SCH (08:46)
[2019-12-14] MEDS: BENZTROPINE MESYLATE 1 MG TAB PO SCH ×2 (08:46→20:03)
[2019-12-14] MEDS ORDERED: hydrOXYzine pamoate 25 MG CAP PO PRN (09:20)
--- NOTE | 2019-12-14 09:28 | PN ---
PROGRESS NOTE DATE OF SERVICE: 12/13/2019. CHIEF COMPLAINT: "I am hearing voices, but it is just mumbling. Also, I do see a lot of shadows around me. There is something touching my body." INTERVAL HISTORY: Patient has been doing fair. She had a quiet day yesterday. She comes out in the day area. She wanders about. It is noted that she walks in a very slow manner almost as if she is in a trance. She does not seem to pay much attention to things going on around her. When she walks, often, she will just hold her arms to her side and does not show much for extraneous movement. She slept fairly well last night. Today she has been up. She comes out in the day area. When I talked to her, she said she needed more medications for anxiety. She did not really identify what things might be distressing her. She was vague about the extent which she may be experiencing hallucinations or delusional thoughts. It does seem to be significant that she was able to share that she is having anxiety. She appears to tolerate her psychotropic medications. It is noted that she is on Invega Sustenna as an antipsychotic medication. MENTAL STATUS: Patient gave fair eye contact. Psychomotor activity was slowed. Speech was monotone and soft. She answered questions with brief responses. Her thoughts were clear. Her affect was flat. Mood depressed. She was moderately distressed. She apparently continues with some auditory hallucinations. She did not voice any thoughts of harm. She was oriented to circumstances and surroundings. ASSESSMENT: I will continue the current diagnosis and treatment plan. At this point, I will add Zyprexa 5 mg twice a day. The aim of Zyprexa is to help manage some of the anxiety and distress she may be experiencing. It is difficult to say how much of this may relate to underlying issues of thought disorder. At this point, I added Zyprexa mainly to help minimize any potential she may have for EPS. Her other psychotropic medications will continue the same. I would defer to Dr. Sinha in terms of addressing her longer- term issues with antipsychotics. We will focus on stabilization and discharge planning. MMNUBIAL / RADHAN: [id number] /
--- NOTE | 2019-12-14 09:28 | P.PN ---
Progress Note - Text Progress Note Date: 12/14/19 I reviewed medical records ,did interview patient and case was discussed in treatment team Patient received 156 mg Invega in ER on 12/03 Slept 4 hours ,does not participate in groups Physical :still c/o of abdominal pain especially after meal On Weekend Zyprexa was added however patient had already Invega injection on 12/03 Interval history: Patient was walking in [place] and agreed to follow me to office ,she stated that auditory hallucination are less but still seeing shadows ,denies any command hallucination of any kind ,has trouble sleeping ,stated that she does not want Remeron and asking for higher dose of Benadryl at night ,no interaction with other ,isolating herself and minimal participation in groups Mental status exam: Patient was wearing hospital gown,fair grooming and hygiene, vague,guarded ,speech is limited in productivity but coherent ,stated mood "Nervous"constricted affect ,reports auditory hallucination and seeing shadow,,denies any suicidal or homicidal ideation ,very concrete in her thinking insight and judgment are limited ASSESSMENT: Schizoaffective ,depressed ,Intellectual disability Cocaine use disorder PLAN: Patient continues to meet criteria for inpatient psychiatric admission for symptom stabilization and safety ,increase Benadryl to 50 mg AM and 100 mg HS ,d/c Remeron ,d/c Zyprexa ,add low dose of Invega,continue Lexapro 20 mg for mood and anxiety , ,Cogentin and PRN Vistaril ,, Zofran prn ,SW on board for post discharge plan ,encourage group participation
[2019-12-14] MEDS ORDERED: diphenhydrAMINE 50 MG CAP PO SCH (21:00)
[2019-12-15] MEDS: LEVOTHYROXINE 50 MCG TAB PO SCH (06:20)
[2019-12-15 06:45] VITALS: BP 99/54; RESP 17; TEMP 98.4
[2019-12-15] MEDS: BENZTROPINE MESYLATE 1 MG TAB PO SCH (08:38)
[2019-12-15] MEDS: ESCITALOPRAM 20 MG TAB PO SCH (08:38)
[2019-12-15] MEDS: NICOTINE 14MG/24HR PATCH TRANSDERM SCH (08:39)
[2019-12-15] MEDS: PANTOPRAZOLE 40 MG TABLET PO SCH (08:39)
[2019-12-15] MEDS ORDERED: PALIPERIDONE 6 MG TAB.ER.24 PO SCH (09:00)
[2019-12-15] MEDS ORDERED: diphenhydrAMINE 50 MG CAP PO SCH (09:00)
--- NOTE | 2019-12-15 10:28 | DS ---
DISCHARGE SUMMARY DATE OF ADMISSION: 12/06/2019. DATE OF DISCHARGE: 12/15/2019 PIGS FEET FINISHER: Cele Zarco for H and P and medical management. DISCHARGE DIAGNOSES: 1. Schizoaffective disorder, depressed. 2. Intellectual disability. 3. Cocaine use disorder. HISTORY OF PRESENT ILLNESS: Patient is a 39, single female who is receiving social security income, presented to the emergency room with paranoia, hallucination, and depression. Patient stated that she has history of schizophrenia versus schizoaffective disorder since age 19 with multiple psychiatric hospitalization and she has been seen at [facility] and she was on Invega injection every 3 months. However, she did miss her last injection as she is currently in rehab at [facility] since November 30, after she was inpatient at [facility] for cocaine use. Patient stated that she came to the emergency room on December 03 and she did receive Invega Sustenna injection 156, but she was still paranoid, suspicious, having trouble sleeping at night, having a lot of abdominal pain and vomiting. For complete psychiatric history, please refer to my history and physical exam. HOSPITAL COURSE: The patient was seen by Logan Zarco for her abdominal pain as patient has history of pancreatitis and she did start her on Zofran as needed and she did recommend to give her clear liquid diet and advance as tolerated to full diet but she stated that her CBC normal and her lipase normal is not elevated and she did recommend is the pain still there or the vomiting still there despite the Zofran. She did recommend the CT abdomen and pelvis. Patient was on Zofran as needed, then she was able to tolerate a full diet. The patient did not have any interaction with other peers or even group. She did need a lot of encouragement to attend group therapy. As she was having severe anxiety, so I discontinued her Wellbutrin and Zoloft and I did start her on Lexapro and titrated to 20 mg daily. In addition, I continued her on her Benadryl twice a day, but I did add Cogentin as needed for the side effect of the Invega in addition Restoril every 8 hours p.r.n. Patient was able to tolerate medication and I told her as she did receive the injection 2 weeks late for her normal injection. I did give her a 2 week supply of oral Invega 6 mg daily, then she will stop and she will continue on Invega injection every 4 weeks. Patient has very quite reserved manner and she stated that she has been rocking herself back and forth since she has been a child. She does not show apparent significant EPS related to the antipsychotic. It seems that it is her way to sooth herself as know TH due to her limited intellectual function. MENTAL STATUS: At the time of the discharge, Patient was sitting on the chair. She has a tendency to rock herself back and forth. She gives good eye contact. She answers most of the question with very brief response. Her voice is very soft. Her affect is flat. Her mood is resolved. She denied any current visual or auditory hallucination. She denied any suicidal or homicidal ideation. She is oriented and alert. Her memory is grossly intact. Insight and judgment are limited. DISCHARGE DIAGNOSES: 1. Schizoaffective disorder, depressed. 2. Intellectual disability. 3. Cocaine use disorder. DISCHARGE PLAN: 1. Patient will return back to the 06/02 [facility] and she will continue to be seen at [facility] for her medication. Patient was instructed to abstain from any illicit drug use and she was given Invega 6 mg oral for 2 weeks and then discontinue. 2. Invega Sustenna 234 mg is due on January 01, 2020. 3. Lexapro 20 mg for 2 weeks. 4. Cogentin 1 mg twice a day. 5. Benadryl 50 mg in the morning and 100 mg at bedtime for sleep. 6. Also I did give her Zofran p.r.n. 4 mg every 12 hours p.r.n. for abdominal pain or nausea or vomiting, just 21 tablets in addition to Vistaril 50 mg every 8 hours p.r.n. for anxiety. 7. Patient to continue on her omeprazole for abdominal pain and her Synthroid 75 mg daily. Patient to follow up with her primary care physician regarding her medical issues, especially her recurrent pancreatitis. Patient to continue with the [facility] for mental health. The patient is not imminent to hurt herself or any other. MMODL / IJN: [id number] /
== END 2019-12-15 11:15 | disposition home or self-care (01) | DRG 885 ==
LOC: EC 11:36 → 3MHU 16:19
PROVIDERS: ADMIT Psychiatry & Neurology Psychiatry; ATTEND Psychiatry & Neurology Psychiatry
DX: F25.1 Schizoaffective disorder, depressive type (principal); E03.9 Hypothyroidism, unspecified; F41.9 Anxiety disorder, unspecified; F17.200 Nicotine dependence, unspecified, uncomplicated; J45.909 Unspecified asthma, uncomplicated; F14.90 Cocaine use, unspecified, uncomplicated; K21.9 Gastro-esophageal reflux disease without esophagitis; F79 Unspecified intellectual disabilities; Z79.890 Hormone replacement therapy; Z88.8 Allergy status to other drugs, medicaments and biological substances; Z90.49 Acquired absence of other specified parts of digestive tract; Z98.891 History of uterine scar from previous surgery; Z82.49 Family history of ischemic heart disease and other diseases of the circulatory system; Z91.83 Wandering in diseases classified elsewhere; Z79.899 Other long term (current) drug therapy
CPT/HCPCS: 80053; 80061; 80306; 82075; 83036; 83690; 84439; 84443; 85025; 85027; 99285

== ENCOUNTER 2020-01-03 23:21 | Emergency (ER) | payer OTHER ==
[2020-01-04 00:34] LABS: Appearance,Urine Clear (Clear); Bilirubin,Urine Negative (Negative); Blood,Urine Negative (Negative); Color,Urine Light Yellow; Glucose,Urine (UA) Negative (Negative); Ketones,Urine Negative (Negative); Leukocyte Esterase,Urine Negative (Negative); Nitrite,Urine Negative (Negative); PH, Urine 7.5 (5.0-8.0); Protein,Urine Negative (Negative); Specific Gravity,Urine 1.005 (1.001-1.035); Urobilinogen,Urine <2.0 mg/dL (<2.0)
--- NOTE | 2020-01-04 00:46 | ED ---
Psych HPI - General Source: patient, police Mode of arrival: ambulatory <Mallory Dalal - Last Filed: 01/04/20 07:25> <Washington Markham - Last Filed: 01/04/20 15:33> - General Chief Complaint: Psychiatric Symptoms Stated Complaint: Police petition Time Seen by Provider: 01/03/20 23:42 - History of Present Illness Initial Comments: Smiley is a 39-year-old female with extensive psychiatric history who is brought to the ER today by police for psychiatric evaluation. Police were contacted because the patient may have overdosed on Benadryl at her long term. Apparently she admits to taking 3 Benadryl but there were 18 missing from the bottle uncertain how old the bottle was or if it was opened prior to this. Patient provides limited further history, she states she has taken all of her regular medications. (Mallory Dalal) - Related Data Home Medications Medication Instructions Recorded Confirmed Levothyroxine Sodium [Synthroid] 75 mcg PO DAILY 12/06/19 01/04/20 Omeprazole 20 mg PO DAILY 12/06/19 01/04/20 Paliperidone IM [Invega Sustenna] 156 mg IM QMONTHLY 01/04/20 01/04/20 Previous Rx's Medication Instructions Recorded Benztropine Mesylate [Cogentin] 1 mg PO BID 14 Days tab 12/15/19 Escitalopram [Lexapro] 20 mg PO DAILY 14 Days tab 12/15/19 Ibuprofen [Motrin] 600 mg PO TID PRN #21 tab 12/15/19 Mag Hydrox/Al Hydrox/Simeth 30 ml PO Q4HR PRN ml 12/15/19 [Maalox] Ondansetron [Zofran] 4 mg PO Q12HR PRN #21 tab 12/15/19 diphenhydrAMINE [Benadryl] 50 mg PO DAILY #14 cap 12/15/19 diphenhydrAMINE [Benadryl] 100 mg PO HS 14 Days cap 12/15/19 hydrOXYzine pamoate [Vistaril] 50 mg PO Q8HR PRN #21 cap 12/15/19 Allergies Allergy/AdvReac Type Severity Reaction Status Date / Time risperidone [From Risperdal] Allergy Unknown Verified 01/04/20 07:34 Review of Systems ROS Other: All systems not noted in ROS Statement are negative. <MulugetaMallory P - Last Filed: 01/04/20 07:25> ROS Other: All systems not noted in ROS Statement are negative. <Washington Markham - Last Filed: 01/04/20 15:33> ROS Statement: Those systems with pertinent positive or pertinent negative responses have been documented in the HPI. Past Medical History Past Medical History: Asthma, GERD/Reflux, Thyroid Disorder Additional Past Medical History / Comment(s): pancreatitis, History of Any Multi-Drug Resistant Organisms: None Reported Past Surgical History: Section, Cholecystectomy Additional Past Surgical History / Comment(s): , gallbladder Past Anesthesia/Blood Transfusion Reactions: No Reported Reaction Past Psychological History: Anxiety, Depression, Schizophrenia Smoking Status: Current every day smoker Past Alcohol Use History: None Reported Past Drug Use History: Cocaine - Past Family History Father Family Medical History: No Reported History Mother Family Medical History: No Reported History <Mallory Dalal - Last Filed: 01/04/20 07:25> General Exam Limitations: no limitations <Mallory Dalal - Last Filed: 01/04/20 07:25> - General Exam Comments Initial Comments: Physical Exam GENERAL: Patient is well-developed and well-nourished. Patient is nontoxic and well-hydrated and is in no distress. HENT: Normocephalic, Atraumatic. EYES: PERRL, EOMI He was 3 mm reactive PULMONARY: Unlabored respirations. No audible rales rhonchi or wheezing was noted. CARDIOVASCULAR: There is a regular rate and rhythm without any murmurs gallops or rubs. No tachycardia ABDOMEN: Soft and nontender with normal bowel sounds. SKIN: Skin is clear with no lesions or rashes and otherwise unremarkable. Skin is not hot or dry : Deferred NEUROLOGIC: Patient is alert and oriented x3. Moving all extremities spontaneously MUSCULOSKELETAL: Normal extremities with adequate strength and full range of motion. No lower extremity swelling or edema. No calf tenderness. PSYCHIATRIC: Agitated (Mallory Dalal) Course Vital Signs 01/03/20 01/04/20 01/04/20 23:34 01:20 06:30 Temperature 97.9 F 98.1 F 98.3 F Pulse Rate 92 87 75 Respiratory 16 16 18 Rate Blood Pressure 114/77 119/76 115/75 O2 Sat by Pulse 100 100 99 Oximetry 01/04/20 10:58 Temperature 99.1 F Pulse Rate 98 Respiratory 14 Rate Blood Pressure 96/60 O2 Sat by Pulse 99 Oximetry Medical Decision Making - Lab Data Result diagrams: 01/04/20 01:01 01/04/20 01:02 - EKG Data -: EKG Interpreted by Al <Mallory Dalal - Last Filed: 01/04/20 07:25> - Lab Data Result diagrams: 01/04/20 01:01 01/04/20 01:02 <Washington Markham - Last Filed: 01/04/20 15:33> - Medical Decision Making The patient was seen and evaluated history is obtained from patient and police Patient was petitioned for suicide attempt after a possible Benadryl ingestion A physical exam I do not believe the patient is experiencing anticholinergic toxicity, she has no physical exam signs of such 4 workup was initiated, labs resulted with mild hypokalemia no other significant abnormalities Patient's medically cleared for evaluation by EPS Patient care signed out to Dr Markham at shift change, pending EPS evaluation (Mallory Dalal) - Lab Data Lab Results 01/04/20 01/04/20 01/04/20 Range/Units 00:18 00:18 01:01 WBC 4.3 (3.8-10.6) k/uL RBC 4.63 (3.80-5.40) m/uL Hgb 14.2 (11.4-16.0) gm/dL Hct 43.1 (34.0-46.0) % MCV 93.0 (80.0-100.0) fL MCH 30.7 (25.0-35.0) pg MCHC 33.0 (31.0-37.0) g/dL RDW 12.8 (11.5-15.5) % Plt Count 161 (150-450) k/uL Neutrophils % 61 % Lymphocytes % 28 % Monocytes % 8 % Eosinophils % 1 % Basophils % 1 % Neutrophils # 2.6 (1.3-7.7) k/uL Lymphocytes # 1.2 (1.0-4.8) k/uL Monocytes # 0.4 (0-1.0) k/uL Eosinophils # 0.1 (0-0.7) k/uL Basophils # 0.0 (0-0.2) k/uL Sodium (137-145) mmol/L Potassium (3.5-5.1) mmol/L Chloride (98-107) mmol/L Carbon Dioxide (22-30) mmol/L Anion Gap mmol/L BUN (7-17) mg/dL Creatinine (0.52-1.04) mg/dL Est GFR (CKD-EPI)AfAm (>60 ml/min/1.73 sqM) Est GFR (CKD-EPI)NonAf (>60 ml/min/1.73 sqM) Glucose (74-99) mg/dL Calcium (8.4-10.2) mg/dL Total Bilirubin (0.2-1.3) mg/dL AST (14-36) U/L ALT (4-34) U/L Alkaline Phosphatase (38-126) U/L Total Protein (6.3-8.2) g/dL Albumin (3.5-5.0) g/dL Urine Color Light Yellow Urine Appearance Clear (Clear) Urine pH 7.5 (5.0-8.0) Ur Specific [place] 1.005 (1.001-1.035) Urine Protein Negative (Negative) Urine Glucose (UA) Negative (Negative) Urine Ketones Negative (Negative) Urine Blood Negative (Negative) Urine Nitrite Negative (Negative) Urine Bilirubin Negative (Negative) Urine Urobilinogen <2.0 (<2.0) mg/dL Ur Leukocyte Esterase Negative (Negative) Urine HCG, Qual Not Detected (Not Detectd) Salicylates mg/dL Urine Opiates Screen Not Detected (NotDetected) Ur Oxycodone Screen Not Detected (NotDetected) Urine Methadone Screen Not Detected (NotDetected) Ur Propoxyphene Screen Not Detected (NotDetected) Acetaminophen ug/mL Ur Barbiturates Screen Not Detected (NotDetected) U Tricyclic Antidepress Not Detected (NotDetected) Ur Phencyclidine Scrn Not Detected (NotDetected) Ur Amphetamines Screen Not Detected (NotDetected) U Methamphetamines Scrn Not Detected (NotDetected) U Benzodiazepines Scrn Not Detected (NotDetected) Urine Cocaine Screen Not Detected (NotDetected) U Marijuana (THC) Screen Not Detected (NotDetected) Serum Alcohol mg/dL 01/04/20 Range/Units 01:02 WBC (3.8-10.6) k/uL RBC (3.80-5.40) m/uL Hgb (11.4-16.0) gm/dL Hct (34.0-46.0) % MCV (80.0-100.0) fL MCH (25.0-35.0) pg MCHC (31.0-37.0) g/dL RDW (11.5-15.5) % Plt Count (150-450) k/uL Neutrophils % % Lymphocytes % % Monocytes % % Eosinophils % % Basophils % % Neutrophils # (1.3-7.7) k/uL Lymphocytes # (1.0-4.8) k/uL Monocytes # (0-1.0) k/uL Eosinophils # (0-0.7) k/uL Basophils # (0-0.2) k/uL Sodium 136 L (137-145) mmol/L Potassium 3.1 L (3.5-5.1) mmol/L Chloride 95 L (98-107) mmol/L Carbon Dioxide 35 H (22-30) mmol/L Anion Gap 6 mmol/L BUN 8 (7-17) mg/dL Creatinine 0.88 (0.52-1.04) mg/dL Est GFR (CKD-EPI)AfAm >90 (>60 ml/min/1.73 sqM) Est GFR (CKD-EPI)NonAf 84 (>60 ml/min/1.73 sqM) Glucose 97 (74-99) mg/dL Calcium 10.2 (8.4-10.2) mg/dL Total Bilirubin 0.6 (0.2-1.3) mg/dL AST 26 (14-36) U/L ALT 16 (4-34) U/L Alkaline Phosphatase 95 (38-126) U/L Total Protein 8.1 (6.3-8.2) g/dL Albumin 4.5 (3.5-5.0) g/dL Urine Color Urine Appearance (Clear) Urine pH (5.0-8.0) Ur Specific [place] (1.001-1.035) Urine Protein (Negative) Urine Glucose (UA) (Negative) Urine Ketones (Negative) Urine Blood (Negative) Urine Nitrite (Negative) Urine Bilirubin (Negative) Urine Urobilinogen (<2.0) mg/dL Ur Leukocyte Esterase (Negative) Urine HCG, Qual (Not Detectd) Salicylates <1.0 mg/dL Urine Opiates Screen (NotDetected) Ur Oxycodone Screen (NotDetected) Urine Methadone Screen (NotDetected) Ur Propoxyphene Screen (NotDetected) Acetaminophen <10.0 ug/mL Ur Barbiturates Screen (NotDetected) U Tricyclic Antidepress (NotDetected) Ur Phencyclidine Scrn (NotDetected) Ur Amphetamines Screen (NotDetected) U Methamphetamines Scrn (NotDetected) U Benzodiazepines Scrn (NotDetected) Urine Cocaine Screen (NotDetected) U Marijuana (THC) Screen (NotDetected) Serum Alcohol <10 mg/dL - EKG Data EKG Comments: EKG was obtained due to possible toxic ingestion, EKG was obtained at 12:04 AM, rate is 83 rhythm is sinus there is a normal axis, normal intervals [place] 146 QRS 86, QTC 472 there are no acute ST elevations or depressions there is no evidence of acute ischemia or infarction arrhythmia or's widening or QT prolongation concerning for toxic ingestion. (Mallory Dalal) Disposition <Mallory Dalal - Last Filed: 01/04/20 07:25> Is patient prescribed a controlled substance at d/c from ED?: No Time of Disposition: 10:42 <Washington Markham - Last Filed: 01/04/20 15:33> Clinical Impression: Depression Disposition: HOME SELF-CARE Condition: Good Instructions (If sedation given, give patient instructions): Depression (ED) Referrals: None,Stated [Primary Care Provider] - 1-2 days
[2020-01-04 00:56] LABS: Amphetamine Screen,Urine Not Detected (NotDetected); Barbiturate Screen,Urine Not Detected (NotDetected); Benzodiazepines Screen,Urine Not Detected (NotDetected); Cocaine Screen,Urine Not Detected (NotDetected); Methadone Screen, Urine Not Detected (NotDetected); Opiate Screen,Urine Not Detected (NotDetected); Oxycodone Screen, Urine Not Detected (NotDetected); Phencyclidine Screen,Urine Not Detected (NotDetected); Tricyclic Antidepressant,Urine Not Detected (NotDetected); Urn Cannabinoid Scrn Not Detected (NotDetected)
[2020-01-04 01:15] LABS: Basophils % (A) 1 %; Eosinophils # (A) 0.1 k/uL (0-0.7); Eosinophils % (A) 1 %; HCT 43.1 % (34.0-46.0); HGB 14.2 gm/dL (11.4-16.0); Lymphocytes # (A) 1.2 k/uL (1.0-4.8); Lymphocytes % (A) 28 %; MCH 30.7 pg (25.0-35.0); Mean Platelet Volume 8.8; Monocytes # (A) 0.4 k/uL (0-1.0); Monocytes % (A) 8 %; Neutrophils # (A) 2.6 k/uL (1.3-7.7); Neutrophils % (A) 61 %; Platelet Count 161 k/uL (150-450); RBC 4.63 m/uL (3.80-5.40); RDW 12.8 % (11.5-15.5); WBC 4.3 k/uL (3.8-10.6)
[2020-01-04 01:28] LABS: ALT 16 U/L (4-34); AST 26 U/L (14-36); Acetaminophen <10.0 ug/mL; African American GFR (CKD) >90 (>60 ml/min/1.73 sqM); Albumin 4.5 g/dL (3.5-5.0); Alcohol <10 mg/dL; Alkaline Phosphatase 95 U/L (38-126); Anion Gap 6 mmol/L; Blood Urea Nitrogen 8 mg/dL (7-17); Calcium 10.2 mg/dL (8.4-10.2); Carbon Dioxide 35 mmol/L (22-30); Chloride 95 mmol/L (98-107); Glucose 97 mg/dL (74-99); Non-African American GFR(CKD) 84 (>60 ml/min/1.73 sqM); Potassium 3.1 mmol/L (3.5-5.1); Salicylate <1.0 mg/dL; Sodium 136 mmol/L (137-145); Total Bilirubin 0.6 mg/dL (0.2-1.3); Total Protein 8.1 g/dL (6.3-8.2)
[2020-01-04] MEDS ORDERED: POTASSIUM CHLORIDE ER 20 MEQ TAB.ER PO STA (01:33)
[2020-01-04] MEDS ORDERED: ONDANSETRON ODT 4 MG TAB PO STA (04:18)
[2020-01-04 11:01] VITALS: BP 96/60; PULSE 98; RESP 14; TEMP 99.1
== END 2020-01-04 10:58 | disposition home or self-care (01) ==
LOC: EC 23:21
DX: F32.9 Major depressive disorder, single episode, unspecified (principal); R45.851 Suicidal ideations; E87.6 Hypokalemia; E07.9 Disorder of thyroid, unspecified; F17.200 Nicotine dependence, unspecified, uncomplicated; K21.9 Gastro-esophageal reflux disease without esophagitis; F20.9 Schizophrenia, unspecified; Z79.890 Hormone replacement therapy; Z88.8 Allergy status to other drugs, medicaments and biological substances; Z79.899 Other long term (current) drug therapy
CPT/HCPCS: 82075; 36415; 93005; 80053; 85025; 81003; 81025; 80306; 83520; 99284; G0480 ×2; 80320; 80329